=== PATIENT | female | born 1985 | race Caucasian/White ===

== ENCOUNTER 2024-03-22 00:39 | Emergency (ER) | payer OTHER ==
[~2024-03-22] VITALS: Ht 167.6 cm; Wt 70.0 kg
[2024-03-22] MEDS ORDERED: MAGNESIUM 2 G PREMIX 50 ML IV ONE (00:45)
[2024-03-22] MEDS: LABETALOL 5MG/ML 4ML INJ IV ONE (00:57)
[2024-03-22 01:07] LABS: DIFFERENTIAL COMMENT 0; EOSINOPHILS % 2.6 % (0.0-5.0); HEMATOCRIT. 32.2 % (36.0-48.0); HEMOGLOBIN. 10.2 g/dL (12.0-16.0); LYMPHOCYTES % 33.6 % (20.0-50.0); MEAN CORPUSCULAR HEMOGLOBIN 22.3 pg (28.0-32.0); MEAN CORPUSCULAR HGB CONC 31.8 g/dL (31.0-37.0); MEAN CORPUSCULAR VOLUME 70.1 fL (81.0-99.0); MEAN PLATELET VOLUME 7.7 fl (7.4-10.4); MONOCYTES % 9.4 % (2.0-8.0); NEUTROPHILS % 53.4 % (40.0-76.0); PLATELET 412 x1000/uL (130-400); RED BLOOD CELL COUNT 4.59 mill/uL (4.2-5.4); RED CELL DISTRIBUTION WIDTH 17.7 % (11.6-14.6); WHITE BLOOD COUNT 10.1 x1000/uL (4.5-11.0)
[2024-03-22 01:11] LABS: CHLORIDE 109 mEq/L (98-107); POTASSIUM 3.7 mEq/L (3.5-5.1); SODIUM 137 mEq/L (136-145)
[2024-03-22 01:12] LABS: CALCIUM 9.1 mg/dL (8.7-10.4); CARBON DIOXIDE 25 mEq/L (21-32)
[2024-03-22 01:17] LABS: CREATININE 0.8 mg/dL (0.6-1.0); GLUCOSE 88 mg/dL (70-105); UREA NITROGEN BLOOD 12 mg/dL (9-23)
[2024-03-22 01:19] LABS: ALANINE AMINOTRANSFERASE 27 IU/L (10-49); ALBUMIN 4.9 g/dL (3.2-4.8); ASPARTATE AMINOTRANSFERASE 27 IU/L (<34); BILIRUBIN TOTAL 0.3 mg/dL (0.1-1.0); PROTEIN TOTAL 8.2 g/dL (6.0-8.3)
[2024-03-22] MEDS: SODIUM CHLORIDE 0.9% 1,000 ML IV ONE (01:24)
[2024-03-22 01:27] LABS: CLARITY URINE CLEAR (CLEAR); COLOR URINE YELLOW (YELLOW); GLUCOSE URINE NEGATIVE (NEGATIVE); KETONES URINE NEGATIVE (NEGATIVE); LEUKOCYTE ESTERASE URINE TRACE (NEGATIVE); NITRITE URINE NEGATIVE (NEGATIVE); OCCULT BLOOD URINE NEGATIVE (NEGATIVE); PROTEIN URINE NEGATIVE (NEGATIVE); SPECIFIC GRAVITY URINE 1.005 (1.005-1.030); UROBILINOGEN URINE 0.2 E.U./dL (0.2-1.0)
[2024-03-22 01:27] LABS: BILIRUBIN DIRECT < 0.1 mg/dL (<=3.0)
[2024-03-22 01:28] LABS: TROPONIN I HIGH SENSITIVITY < 4 ng/L (3.0-34)
[2024-03-22] MEDS: MAGNESIUM 4 G PREMIX 100 ML IV NR (01:38)
[2024-03-22 01:46] VITALS: TEMP 36.89184
[2024-03-22 02:12] LABS: RBC URINE 0-2 /hpf (0-2)
[2024-03-22 02:13] LABS: SQUAMOUS EPITHELIAL CELL URINE NONE SEEN /lpf (RARE/1+)
[2024-03-22 02:14] LABS: BACTERIA URINE NONE SEEN
[2024-03-22] MEDS: IBUPROFEN 600MG TABLET PO ONE (06:39)
[2024-03-22 06:40] VITALS: BP 119/80; PULSE 73; RESP 15; O2SAT 99
== END 2024-03-22 07:01 | disposition home or self-care (01) ==
LOC: ER 00:39
DX: O10.113 Pre-existing hypertensive heart disease complicating pregnancy, third trimester (principal); I16.1 Hypertensive emergency; O26.893 Other specified pregnancy related conditions, third trimester; R07.89 Other chest pain; Z3A.34 34 weeks gestation of pregnancy
CPT/HCPCS: 99285; 96365; 76805; 71045; 96375; 80076; 80048; 81003; 84702; 85025; 84484; 36415; 93005; J3490; J3475 ×2; J7030